=== PATIENT | male | born 2005 | race Caucasian/White ===

== ENCOUNTER 2025-09-22 15:28 | Emergency (ER) | payer OTHER, SELFPAY ==
--- NOTE | 2025-09-22 15:30 | ED_ITS ---
HPI - Abdominal Pain General Chief Complaint: Abdominal Pain Stated Complaint: Stomach Pain Time Seen by Provider: 09/22/25 15:30 Source: patient Mode of arrival: ambulatory Limitations: no limitations History of Present Illness HPI narrative: SRIRAM is a 20-year-old male patient presenting to the clinic today with complaints of lower abdominal pain x2 days. He reports he was playing an arcade on Monday and push down hard on a arcade game to spend a wheeled and felt a pull in his right lower abdomen. States he did pass out after he did this due to the pain and he vomited 1 time. He reports he moved/twisted yesterday and had pain in the abdomen and passed out again. He is reporting some discomfort in the right lower quadrant. He is concerned that he may have a hernia. Also has history of IBS with constipation. Last bowel movement was yesterday and was very small. Denies any blood in his stool, blood in urine, or blood in his vomit. Related Data Home Medications ?Medication ?Instructions ?Recorded ?Confirmed ?Last Taken ?Type citalopram 20 mg tablet mg 09/22/25 Unknown History Allergies Allergy/AdvReac Type Severity Reaction Status Date / Time No Known Allergies Allergy Verified 09/22/25 16:38 Review of Systems Review of Systems: Pertinent positives per HPI. Patient denies any fever, chills, rash, headache, visual changes, dizziness, cough, runny nose, sore throat, shortness of breath, chest pain, palpitations, nausea, vomiting, diarrhea, constipation,or any urinary issues. PMFSH Comments At the time of my signature, I reviewed and agree with the nursing past medical, surgical, social, and family history. There is no relevant family history pertinent to the patient complaint. Exam Narrative: General: Well-developed, well nourished, in no apparent distress. Head: Normocephalic, atraumatic. Cardio: Regular rate and rhythm, s1 and s2 normal, no murmur appreciated. Resp: Clear to auscultation bilaterally, no rhonchi, rales, wheezing or rubs. Abdomen: Soft, pliable, bowel sounds present in all quadrants, mild lower abdominal wall tender to palpation, no organomegly, no CVAT tenderness. Course Course Level of Care: Express Care Visit Vital Signs Vital signs: Vital Signs Temperature 36.6 C 09/22/25 15:47 Pulse Rate 62 09/22/25 15:47 Respiratory Rate 20 09/22/25 15:47 Blood Pressure 123/82 09/22/25 15:47 Pulse Oximetry 100 09/22/25 15:47 Oxygen Delivery Room Air 09/22/25 15:47 Temperature 36.6 C 09/22/25 15:47 Pulse Rate 62 09/22/25 15:47 Respiratory Rate 20 09/22/25 15:47 Blood Pressure 123/82 09/22/25 15:47 Pulse Oximetry 100 09/22/25 15:47 Oxygen Delivery Room Air 09/22/25 15:47 MDM MDM Narrative Medical decision making narrative: At the time of visit patient is resting comfortably on the exam table. Patient appears to be nontoxic. Complaints of lower abdominal pain x2 days. He reports he was playing an arcade on Monday and push down hard on a arcade game to spend a wheeled and felt a pull in his right lower abdomen. States he did pass out after he did this due to the pain and he vomited 1 time. He reports he moved/twisted yesterday and had pain in the abdomen and passed out again. He is reporting some discomfort in the right lower quadrant. He is concerned that he may have a hernia. Also has history of IBS with constipation. Last bowel movement was yesterday and was very small. Denies any blood in his stool, blood in urine, or blood in his vomit. On exam patient has soft, pliable, abdomen with no palpable hernia, mild tenderness to palpation over the lower lateral abdomen, bowel sounds present, no CVAT tenderness. Plan: I suspect patient likely has an abdominal wall strain. No palpable hernia in the clinic today. Supportive measures were discussed with the patient and they voiced understanding discharge instructions and agrees to treatment plan. Return precautions reviewed Differential Diagnosis Differential Diagnosis: Differential diagnostic considerations for acute abdominal pain include surgical abdominal etiology, ischemic bowel, inflammatory bowel disease, gastritis, PUD, gastroenteritis, cardiac etiology, appendicitis, diverticulitis, bowel obstruction, kidney stone, pyelonephritis, abdominal aortic aneurysm, pancreatitis, constipation, endometriosis. Discharge Plan Discharge Clinical Impression: Abdominal pain, lower, Abdominal wall strain Patient Disposition: Acute Care Hospital Condition: Stable Instructions: Antibiotic Form, Muscle Strain (ED), Abdominal Pain (ED) Additional Instructions: No palpable abdominal wall hernia in the clinic today Increase fluids and stay well hydrated May take MiraLax as needed for constipation May use heat or ice to the affected area May take Tylenol/ibuprofen as needed for pain Follow up with your PCP in 1-2 days if symptom persist. Go to the emergency room if symptoms worsen-increase in abdominal pain, passing out, fevers, nausea, vomiting, chest pain, or shortness of breath Patient Language: Citizen Of [place] Prescriptions: No Action citalopram 20 mg tablet Follow-up/Referrals: UNKNOWN,DOCTOR [Non-Staff] Time of Disposition: 15:46 Quality NIHSS Nursing Documentation ED NIHSS nursing documentation: reviewed/agree
[2025-09-22 15:47] VITALS: BP 123/82; PULSE 62; RESP 20; TEMP 36.6; O2SAT 100
== END 2025-09-22 16:25 | disposition short-term general hospital (02) ==
PROVIDERS: Emergency Provider Nurse Practitioner Family
DX: R10.30 Lower abdominal pain, unspecified (principal)
CPT/HCPCS: 99202; G0463